=== PATIENT | female | born 1960 | race Caucasian/White ===

== ENCOUNTER 2021-12-28 12:04 | Emergency (ER) | payer BC ==
[2021-12-28 12:44] LABS: CHLORIDE,CL 105 mmol/L (98-107); SODIUM,NA 141 mmol/L (136-145)
== END 2021-12-28 13:50 | disposition home or self-care (01) ==
LOC: LL.ED 12:04
DX: M25.561 Pain in right knee (principal); J44.9 Chronic obstructive pulmonary disease, unspecified; E78.00 Pure hypercholesterolemia, unspecified; I10 Essential (primary) hypertension; E66.9 Obesity, unspecified; Z68.30 Body mass index [BMI] 30.0-30.9, adult; Z87.891 Personal history of nicotine dependence; Z88.5 Allergy status to narcotic agent; Z88.8 Allergy status to other drugs, medicaments and biological substances; Z88.0 Allergy status to penicillin
CPT/HCPCS: 36415; 73562-RT; 80048; 85025; 99283

== ENCOUNTER 2022-07-09 10:38 | Emergency (ER) | payer OTHER, MEDICAID | END 2022-07-09 11:26 | disposition home or self-care (01) | LOC: LL.ED 10:38 | DX: S61.011A Laceration without foreign body of right thumb without damage to nail, initial encounter (principal); W26.0XXA Contact with knife, initial encounter; E78.00 Pure hypercholesterolemia, unspecified; I10 Essential (primary) hypertension; J44.9 Chronic obstructive pulmonary disease, unspecified; E66.9 Obesity, unspecified; Z68.32 Body mass index [BMI] 32.0-32.9, adult; Z88.0 Allergy status to penicillin; Z88.8 Allergy status to other drugs, medicaments and biological substances | CPT/HCPCS: 12001; 99282; 99283 ==

== ENCOUNTER 2023-09-25 07:09 | Day surgery (SDC) | payer OTHER, MEDICARE ==
[~2023-09-25 07:09] MED LIST: Sodium Chloride 0.9% 10 ML Syringe FLUSH PRN
[2023-09-25] MEDS ORDERED: Propofol 200 MG/20 ML SDV ONE (07:26)
[2023-09-25] MEDS ORDERED: Midazolam 1 MG/ML 2 ML SDV ONE ×2 (07:26→07:53)
[2023-09-25] MEDS: Lactated Ringers 1,000 ML IV SCH (07:27)
[2023-09-25] MEDS ORDERED: Ciprofloxacin in D5W 200 ML ONE (08:06)
[2023-09-25] MEDS: Bupivacaine 0.5%/EPINEPHrine 1:200,000 30 ML SDV INJECT ONE (08:32)
[2023-09-25] MEDS: Lidocaine 1% 5 ML VIAL INJECT ONE (08:33)
[2023-09-25] MEDS: Bacitracin Oint 1 GM U/D Packet TOP ONE (09:15)
== END 2023-09-25 10:29 | disposition home or self-care (01) ==
LOC: LL.SDS 07:09
PROVIDERS: ATTEND Surgery
DX: D17.21 Benign lipomatous neoplasm of skin and subcutaneous tissue of right arm (principal); I10 Essential (primary) hypertension; E78.5 Hyperlipidemia, unspecified; F32.A Depression, unspecified; F17.210 Nicotine dependence, cigarettes, uncomplicated; Z79.899 Other long term (current) drug therapy; Z88.5 Allergy status to narcotic agent; Z88.0 Allergy status to penicillin; Z88.2 Allergy status to sulfonamides; Z88.8 Allergy status to other drugs, medicaments and biological substances
CPT/HCPCS: 00400; J0744; J2250; J2704; J3490; J7120

== ENCOUNTER 2023-11-02 08:13 | Emergency (ER) | payer MEDICARE, OTHER ==
[2023-11-02 08:42] LABS: BASOPHILS ABSOLUTE AUTO 0.03 K/uL (0.00-0.20); BASOPHILS PERCENT AUTO 0.6 % (0.0-2.0); EOSINOPHILS ABSOLUTE AUTO 0.21 K/uL (0.00-0.50); EOSINOPHILS PERCENT AUTO 4.3 % (0.0-5.0); HEMATOCRIT 37.2 % (34.0-46.0); LYMPHOCYTES ABSOLUTE AUTO 1.57 K/uL (0.50-3.50); LYMPHOCYTES PERCENT AUTO 32.2 % (10.0-50.0); MEAN CORPUSCULAR HEMOGLOBIN 31.7 pg (28.2-33.3); MEAN CORPUSCULAR HGB CONC 32.3 g/dL (31.7-36.0); MEAN CORPUSCULAR VOLUME 98.4 fL (84.0-98.0); MONOCYTES ABSOLUTE AUTO 0.38 K/uL (0.00-1.00); MONOCYTES PERCENT AUTO 7.8 % (2.0-14.0); NEUTROPHILS ABSOLUTE AUTO 2.69 K/uL (1.40-7.00); NEUTROPHILS PERCENT AUTO 55.1 % (45.0-80.0); PLATELET COUNT,PLT 244 K/uL (150-350); RED BLOOD CELL COUNT 3.78 M/uL (3.77-5.09); RED CELL DISTRIBUTION WIDTH 12.1 % (11.2-14.1); WHITE BLOOD CELL COUNT,WBC 4.9 K/uL (4.0-10.2)
[2023-11-02 08:49] LABS: ALBUMIN 3.7 g/dL (3.4-5.0); ANION GAP 9.1 meq/L (7-15); BILIRUBIN TOTAL 0.4 mg/dL (0.2-1.0); CALCIUM 8.6 mg/dL (8.5-10.1); CARBON DIOXIDE,CO2 27.9 mmol/L (21.0-32.0); CREATININE 0.66 mg/dL (0.51-1.17); EST CRCL DRUG DOSING (CG) 61.85 mL/min; POTASSIUM,K 4.6 mmol/L (3.5-5.1); PROTEIN TOTAL,TP 6.6 g/dL (6.4-8.2)
[2023-11-02] MEDS ORDERED: Take Home: traMADol 50 MG, 4 Tab Pack PO ONE (08:49)
[2023-11-02] MEDS ORDERED: traMADol 50 MG Tab PO ONE (08:49)
[2023-11-02] MEDS ORDERED: predniSONE 20 MG Tab PO ONE (08:50)
[2023-11-02] MEDS ORDERED: Ketorolac 30 MG/ML SDV IM ONE (09:02)
[2023-11-02 09:44] LABS: SEDIMENTATION RATE AUTO 1 mm/hr (0-30)
== END 2023-11-02 10:10 | disposition home or self-care (01) ==
LOC: LL.ED 08:13
DX: M17.12 Unilateral primary osteoarthritis, left knee (principal); I10 Essential (primary) hypertension; E78.00 Pure hypercholesterolemia, unspecified; J44.9 Chronic obstructive pulmonary disease, unspecified; K21.9 Gastro-esophageal reflux disease without esophagitis; E66.9 Obesity, unspecified; Z68.41 Body mass index [BMI] 40.0-44.9, adult; Z88.0 Allergy status to penicillin; Z88.2 Allergy status to sulfonamides; Z88.3 Allergy status to other anti-infective agents; Z88.5 Allergy status to narcotic agent; Z88.6 Allergy status to analgesic agent; Z90.710 Acquired absence of both cervix and uterus
CPT/HCPCS: 36415; 73562; 80053; 85025; 85652; 96372; 99283; A9270; J1885; J7512

== ENCOUNTER 2025-05-12 08:39 | Day surgery (SDC) | payer MEDICARE ==
[~2025-05-12 08:39] MED LIST changes: +Propofol 200 MG/20 ML SDV ONE
[2025-05-12] MEDS: Lactated Ringers 1,000 ML IV SCH (09:43)
[2025-05-12 10:29] VITALS: BP 135/59; PULSE 65
== END 2025-05-12 11:10 | disposition home or self-care (01) ==
LOC: LL.SDS 08:39
PROVIDERS: ATTEND Surgery
DX: Z12.11 Encounter for screening for malignant neoplasm of colon (principal); K57.30 Diverticulosis of large intestine without perforation or abscess without bleeding; E78.5 Hyperlipidemia, unspecified; I10 Essential (primary) hypertension; Z88.0 Allergy status to penicillin; Z88.5 Allergy status to narcotic agent; Z88.2 Allergy status to sulfonamides; Z88.8 Allergy status to other drugs, medicaments and biological substances; Z86.0100 Personal history of colon polyps, unspecified; Z87.891 Personal history of nicotine dependence; Z79.899 Other long term (current) drug therapy
CPT/HCPCS: J2704; J7120